=== PATIENT | male | born 1960 | race Caucasian/White ===

== ENCOUNTER 2017-11-03 13:59 | Emergency (ER) | payer OTHER ==
[~2017-11-03] VITALS: Ht 182.9 cm; Wt 89.4 kg
[~2017-11-03 13:59] MED LIST: AMO500 PO; ASPI-1471 PO; ASPI-879 PO; AZIT500T47 PO; BACDS PO; CEP500 PO; CIP500 PO; CIPR-212 PO; CLA500 PO; CPAP; DEXLAN60PT PO; DOC100 PO; DOXY-179 PO; FISH OIL1 CAP PO; FLU20 PO; GERD MED; HYDR-385 PO; HYDR-4309 PO; IBU600 PO; IBU800 PO; LISI-368 PO; LOR5 PO; LOR5/325 PO; LORTAB ELIXER; METO-734 PO; NAPR-1043 PO; NEBI10TA4 PO; NEBI2.5T5 PO; NEBI5TAB PO; NIT3 PO; NOR5/325 PO; OLA5 PO; OMEP-137 PO; OMEP-218 PO; OMEP10CA38 PO; ONDA4TAB PO; OXYC-688 PO; PANT40SU3 PO; PANT40TA65 PO; PER PO; PHENA200 PO; PRED-1 PO; SIMV5TAB56 PO; STONE FREE PO; SUCR1TAB51 PO; SUCR1TAB85 PO; SULF-198 PO; TAM4 PO; TOLT4CAP13 PO; no routine meds
[2017-11-03] MEDS ORDERED: NS(*) 0.9% 1000 ML BAG 1,000 ML IV ONE (14:16)
[2017-11-03] MEDS ORDERED: ONDANSETRON 4 MG/2 ML VIAL IVP ONE (14:20)
--- NOTE | 2017-11-03 14:28 | EKG ---
FACILITY: [facility] PATIENT NAME: JOSSIE SOTO : [id number] MR: [id number] V: [id number] EXAM DATE: ORDERING PHYSICIAN: ATTILA MONTALVO TECHNOLOGIST: MOISÉS Beltre Reason : CHEST TIGHTNESS Blood Pressure : / mmHG Vent. Rate : 080 BPM Atrial Rate : 080 BPM P-R Int : 168 ms QRS Dur : 080 ms QT Int : 370 ms P-R-T Axes : 057 009 050 degrees QTc Int : 426 ms Normal sinus rhythm Cannot rule out Anterior infarct , age undetermined Abnormal ECG When compared with ECG of 03-DEC-2015 00:03, No significant change was found Confirmed by GARCIA HUITRON ([id number]) on 11/03/2017 3:16:01 PM Referred By: SELVIN Confirmed By:GARCIA HUITRON
[2017-11-03 14:32] LABS: PLATELET COUNT, AUTOMATED 172 K/uL (150-450)
--- NOTE | 2017-11-03 14:32 | ER Report ---
History and Physical Time Seen By MD: 14:00 Hx. of Stated Complaint: chest tightness, sob, stomache pains, lower back pains HPI/ROS CHIEF COMPLAINT: Abdominal pain lower GI bleed HISTORY OF PRESENT ILLNESS: Patient is a 49 HO Farfan had dark stool is been seen and evaluated he's scheduled for colonoscopy says last couple days she's also had some mild abdominal discomfort primarily in the left upper and left lower quadrant also had some mild chest discomfort patient reportedly is she was tobacco has a family history of colon rectal cancer last bowel movement was dark but no obvious loulou or gross blood at this time is denying any orthopnea PND does have mild exertional dyspnea but this is been chronic in nature patient has no additional complaints at this time REVIEW OF SYSTEMS: Respiratory: No cough, no dyspnea. Cardiovascular: No chest pain, no palpitations. Gastrointestinal: Abdominal pain left upper left lower no nausea vomiting or diarrhea Musculoskeletal: No back pain. Remainder of the 14 system rev: Yes Allergies: Coded Allergies: No Known Drug Allergies (Unverified , 12/03/15) Home Meds Reported Medications Metformin Hcl (METFORMIN HCL) 500 Mg Tablet, 1 TAB PO BID, TAB 11/03/17 Simvastatin (SIMVASTATIN) 20 Mg Tablet, 20 MG PO HS, TAB 11/03/17 Lisinopril (LISINOPRIL) 10 Mg Tablet, 10 MG PO QDAY, TAB 11/03/17 Nebivolol Hcl (BYSTOLIC) 10 Mg Tab, 10 MG FT, TAB 11/03/17 Aspirin (ASPIR 81) 81 Mg Tablet.dr, 81 MG PO QDAY, TAB 08/10/14 Discontinued Reported Medications Nebivolol Hcl (BYSTOLIC) 5 Mg Tablet, 5 MG PO DAILY 08/10/14 Discontinued Scripts Hydrocodone Bit/Acetaminophen (NORCO 5-325 TABLET) 1 Each Tablet, 1 EACH PO Q4H Y for PAIN, #15 TAB Prov:BAHMAN LIU DO 12/03/15 Prednisone 10 Mg Tab (PREDNISONE 10 MG TAB) 10 Mg Tablet, 10 MG PO QDAY Y for ulcerative colitis, #27 3 tabs daily for 5 days 2 tabs daily for 5 days 1 tab daily for 5 days Prov:BAHMAN LIU DO 12/03/15 Pantoprazole Sodium (PANTOPRAZOLE SODIUM) 40 Mg Tablet., 40 MG PO QDAY, #60 TAB.SR 2 Refills Prov:LEROY MARQUEZ MD 10/31/15 Reviewed Nurses Notes: Yes Old Medical Records Reviewed: Yes Hx Smoking: No Smoking Status: Never Smoker Exposure to Second Hand Smoke?: No Hx Substance Use Disorder: Yes (METH LAST TIME WAS 2002) Hx Alcohol Use: Yes (occasional) Constitutional Vital Sign - Last 24 Hours 11/03/17 11/03/17 11/03/17 11/03/17 14:06 14:06 14:14 14:29 Temp 99.0 Pulse 82 83 77 Resp 14 B/P (MAP) 124/84 124/84 (97) Pulse Ox 98 93 91 O2 Delivery Room Air 11/03/17 11/03/17 11/03/17 14:30 14:44 15:00 Pulse 105 B/P (MAP) 119/78 (92) ???/??? (1665) Pulse Ox 100 Physical Exam General Appearance: The patient is alert, has no immediate need for airway protection and no current signs of toxicity. [ ] Eyes: Pupils equal and round no injection. Respiratory: Chest is non tender, lungs are clear to auscultation. Cardiac: regular rate and rhythm [ ] Gastrointestinal: Abdomen is soft and non tender, no masses, bowel sounds normal. Musculoskeletal: Neck: Neck is supple and non tender. Extremities have full range of motion and are non tender. Skin: No rashes or lesions. Rectal exam deferred DIFFERENTIAL DIAGNOSIS: After history and physical exam differential diagnosis was considered for colitis diverticulitis cardiac issue Medical Decision Making Data Points Result Diagram: 11/03/17 1408 11/03/17 1408 Laboratory Hematology Test 11/03/17 14:08 11/03/17 15:30 Red Blood Count 5.47 M/uL (4.00-5.60) Mean Corpuscular Volume 93.2 fL (80.0-96.0) Mean Corpuscular Hemoglobin 33.1 pg (26.0-33.0) Mean Corpuscular Hemoglobin Concent 35.5 g/dL (32.0-36.0) Red Cell Distribution Width 12.7 % (11.5-14.5) Mean Platelet Volume 8.6 fL (7.2-11.1) Neutrophils (%) (Auto) 61.5 % (39.4-72.5) Lymphocytes (%) (Auto) 21.6 % (17.6-49.6) Monocytes (%) (Auto) 13.3 % (4.1-12.4) Eosinophils (%) (Auto) 2.5 % (0.4-6.7) Basophils (%) (Auto) 1.1 % (0.3-1.4) Nucleated RBC Relative Count (auto) 0.2 /100WBC Neutrophils # (Auto) 5.4 K/uL (2.0-7.4) Lymphocytes # (Auto) 1.9 K/uL (1.3-3.6) Monocytes # (Auto) 1.2 K/uL (0.3-1.0) Eosinophils # (Auto) 0.2 K/uL (0.0-0.5) Basophils # (Auto) 0.1 K/uL (0.0-0.1) Nucleated RBC Absolute Count (auto) 0.02 K/uL Prothrombin Time 13.7 seconds (12.0-14.4) Prothromb Time International Ratio 1.05 Activated Partial Thromboplast Time 29 seconds (23-35) Sodium Level 140 mmol/L (137-145) Potassium Level 3.9 mmol/L (3.5-5.0) Chloride Level 100 mmol/L (98-107) Carbon Dioxide Level 26 mmol/L (22-30) Blood Urea Nitrogen 19 mg/dl (9-21) Creatinine 1.20 mg/dl (0.66-1.25) Glomerular Filtration Rate Calc > 60.0 Random Glucose 97 mg/dl (75-110) Calcium Level 9.4 mg/dl (8.4-10.2) Total Bilirubin 1.2 mg/dl (0.2-1.3) Aspartate Amino Transf (AST/SGOT) 51 U/L (0-35) Alanine Aminotransferase (ALT/SGPT) 88 U/L (0-56) Alkaline Phosphatase 89 U/L (0-126) Troponin I < 0.012 ng/ml Total Protein 7.9 gm/dl (6.3-8.2) Albumin 4.5 g/dl (3.5-5.0) Lipase 84 U/L (23-300) Serum Alcohol < 10 mg/dl Chemistry Test 11/03/17 14:08 11/03/17 15:30 White Blood Count 8.8 k/uL (4.5-11.0) Red Blood Count 5.47 M/uL (4.00-5.60) Hemoglobin 18.1 g/dL (14.0-18.0) Hematocrit 51.0 % (42.0-52.0) Mean Corpuscular Volume 93.2 fL (80.0-96.0) Mean Corpuscular Hemoglobin 33.1 pg (26.0-33.0) Mean Corpuscular Hemoglobin Concent 35.5 g/dL (32.0-36.0) Red Cell Distribution Width 12.7 % (11.5-14.5) Platelet Count 172 K/uL (150-450) Mean Platelet Volume 8.6 fL (7.2-11.1) Neutrophils (%) (Auto) 61.5 % (39.4-72.5) Lymphocytes (%) (Auto) 21.6 % (17.6-49.6) Monocytes (%) (Auto) 13.3 % (4.1-12.4) Eosinophils (%) (Auto) 2.5 % (0.4-6.7) Basophils (%) (Auto) 1.1 % (0.3-1.4) Nucleated RBC Relative Count (auto) 0.2 /100WBC Neutrophils # (Auto) 5.4 K/uL (2.0-7.4) Lymphocytes # (Auto) 1.9 K/uL (1.3-3.6) Monocytes # (Auto) 1.2 K/uL (0.3-1.0) Eosinophils # (Auto) 0.2 K/uL (0.0-0.5) Basophils # (Auto) 0.1 K/uL (0.0-0.1) Nucleated RBC Absolute Count (auto) 0.02 K/uL Prothrombin Time 13.7 seconds (12.0-14.4) Prothromb Time International Ratio 1.05 Activated Partial Thromboplast Time 29 seconds (23-35) Glomerular Filtration Rate Calc > 60.0 Calcium Level 9.4 mg/dl (8.4-10.2) Total Bilirubin 1.2 mg/dl (0.2-1.3) Aspartate Amino Transf (AST/SGOT) 51 U/L (0-35) Alanine Aminotransferase (ALT/SGPT) 88 U/L (0-56) Alkaline Phosphatase 89 U/L (0-126) Troponin I < 0.012 ng/ml Total Protein 7.9 gm/dl (6.3-8.2) Albumin 4.5 g/dl (3.5-5.0) Lipase 84 U/L (23-300) Serum Alcohol < 10 mg/dl Coagulation Test 11/03/17 14:08 Prothrombin Time 13.7 seconds Prothromb Time International Ratio 1.05 Activated Partial Thromboplast Time 29 seconds Toxicology Test 11/03/17 14:08 Serum Alcohol < 10 mg/dl Urinalysis Test 11/03/17 15:30 ED Course/Re-evaluation ED Course ED clinical course 49 atrial male comes in with nonspecific nonlocalized abdominal discomfort which is chronic and for blood in his stool he deferred on his rectal exam his hemoglobin is 18 so clearly there is no emergent indication for further imaging at this time CT scan does show no acute findings of the abdomen and pelvis he did have a nodule in the chest advised him to follow up with the outpatient imaging on that patient be discharged he hasn't arty schedule colonoscopy in the next couple of weeks refer him to back to his GI specialist for further workup Decision to Disposition Date: Nov 03, 2017 Decision to Disposition Time: 15:44 Depart Departure Latest Vital Signs Vital Signs Date Time Temp Pulse Resp B/P (MAP) Pulse Ox O2 Delivery O2 Flow Rate FiO2 11/03/17 15:00 ???/??? (1665) 11/03/17 14:44 105 100 11/03/17 14:06 99.0 14 Room Air Impression: Primary Impression: Rectal bleeding Condition: Improved Disposition: HOME OR SELF-CARE Referrals: SUYAPA VALENZUELA (PCP) 10 Days Patient Instructions: Rectal Bleeding (DC) ATTILA MONTALVO MD Nov 03, 2017 14:32
[2017-11-03 14:35] LABS: INR 1.05
[2017-11-03] MEDS ORDERED: IOPAMIDOL 76% 75 ML INFUS BTL 0 ML ONE (14:42)
[2017-11-03] MEDS ORDERED: NEBI10TA4 FT (14:47)
[2017-11-03] MEDS ORDERED: LISI-362 PO (14:48)
[2017-11-03] MEDS ORDERED: METF-410 PO (14:50)
[2017-11-03] MEDS ORDERED: SIMV-49 PO (14:50)
[2017-11-03] MEDS ORDERED: IOPAMIDOL 76% 50 ML INFUS BTL 0 ML ONE (15:09)
[2017-11-03] MEDS ORDERED: IOPAMIDOL 76% 75 ML INFUS BTL 75 ML ONE (15:11)
--- NOTE | 2017-11-03 15:29 | RADIOLOGY IMAGING REPORT ---
FACILITY: [facility] PATIENT NAME: Edward Umana : 1960 MR: [id number] V: [id number] EXAM DATE: ORDERING PHYSICIAN: ATTILA MONTALVO TECHNOLOGIST: Location[place] [facility] [place] Patient: Edward Umana : 1960 Visit/Account:[id number] Date of Sevice: 11/03/2017 Examination: CHEST PA AND LAT Comparison: None. History: Chest pain. Findings: No consolidation or evidence of peribronchial inflammation. Incompletely visualized proxima lly 1 cm nodule in the anterior chest is only seen on the lateral projection. No pneumothorax, edema, or effusion. Osseous structures are intact. IMPRESSION: 1. No evidence of acute cardiopulmonary disease. 2. Incompletely characterized 1 cm nodule. Further evaluation by CT chest is recommended. Report Dictated By: Fabian Wild MD at 11/03/2017 3:23 PM Report E-Signed By: Fabian Wild MD at 11/03/2017 3:25 PM WSN:[id number]
--- NOTE | 2017-11-03 15:38 | RADIOLOGY IMAGING REPORT ---
FACILITY: [facility] - [place] PATIENT NAME: Edward Umana : 1960 MR: [id number] V: [id number] EXAM DATE: ORDERING PHYSICIAN: ATTILA MONTALVO TECHNOLOGIST: Location: [facility] Patient: Edward Umana : 1960 Visit/Account:[id number] Date of Sevice: 11/03/2017 EXAMINATION: CT abdomen and pelvis with contrast COMPARISON: 08/10/2014 HISTORY: Abdominal pain. PROCEDURE: Multiplanar contrast enhanced CT of the abdomen and pelvis with 75 mL intravenous Isovue 3 70. One of the following dose optimization techniques was utilized in the performance of this exam: A utomated exposure control; adjustment of the mA and/or kV according to the patient's size; or use of an iterative reconstruction technique. Specific details can be referenced in the facility's radiolo gy CT exam operational policy. FINDINGS: Visualized thorax: No evidence of acute disease in the visualized lower thorax. The region of the que stionable nodule on earlier chest radiograph is not included on this study. Liver: Hepatic steatosis. Gallbladder and biliary system: Cholecystectomy. No bile duct dilation. Spleen: Spleen size is normal. Pancreas: Negative. Adrenal glands: Negative. Kidneys and bladder: The left kidney contains multiple small cortical and parapelvic cysts as well as a single 3 mm nonobstructing stone in the lower pole. No left or right kidney renal mass or hydronep hrosis. Urinary bladder is unremarkable. Vessels: Moderate aortoiliac atherosclerosis. No abdominal aortic aneurysm. Portal venous system and IVC are within normal limits. Bowel and mesentery: Stomach is within normal limits. Small bowel and appendix are unremarkable. Smal l amount of stool in the colon. No bowel or mesenteric inflammation. Pelvic organs: Negative. Lymph nodes: No adenopathy. Free air/free fluid: None. Abdominal wall and osseous structures: Abdominal wall is intact. Mild degenerative change throughout the osseous structures. No acute osseous abnormality. IMPRESSION: 1. No findings of acute disease in the abdomen or pelvis. 2. Nonacute findings as detailed above. Report Dictated By: Fabian Wild MD at 11/03/2017 3:27 PM Report E-Signed By: Fabian Wild MD at 11/03/2017 3:33 PM WSN:[id number]
[2017-11-03 15:50] VITALS: BP 136/88
== END 2017-11-03 15:52 | disposition home or self-care (01) ==
LOC: ER 14:28
DX: K62.5 Hemorrhage of anus and rectum (principal)
CPT/HCPCS: 71046; 74177; 80320; 81001; 83690; 84484; 85025; 85610; 85730; 93005; 96361; 96374; 99284; J2405; J7030; Q9967; 82040; 82247; 82310; 82374; 82435; 82565; 82947; 84075; 84132; 84155; 84295; 84450; 84460; 84520

== ENCOUNTER → 2017-11-21 | Outpatient (REF) | payer OTHER ==
[~2017-11-21] MED LIST changes: +LISI-362 PO; +METF-410 PO; +NEBI10TA4 FT; +SIMV-49 PO
== END ==
LOC: ZZSTITCHES 09:56
PROVIDERS: ATTEND Physician Assistant
DX: Z00.00 Encounter for general adult medical examination without abnormal findings (principal)
CPT/HCPCS: 84153

== ENCOUNTER → 2018-01-21 | Outpatient (CLI) | payer OTHER ==
[~2018-01-21] MED LIST changes: -METF-410 PO; +METF-411 PO
== END ==
LOC: RESP 19:48
PROVIDERS: ATTEND Internal Medicine
DX: G47.33 Obstructive sleep apnea (adult) (pediatric) (principal); E66.3 Overweight

== ENCOUNTER 2018-04-10 23:52 | Emergency (ER) | payer OTHER ==
[2018-04-11] MEDS ORDERED: METF-411 PO (00:02)
[2018-04-11] MEDS ORDERED: LOSA100T67 (00:02)
--- NOTE | 2018-04-11 00:06 | ER Report ---
History and Physical Time Seen By MD: 00:05 Hx. of Stated Complaint: PT REPORTS LLQ PAIN ON AND OFF FOR 2 WEEKS, DIARRHEA HPI/ROS CHIEF COMPLAINT: Left abdominal pain HISTORY OF PRESENT ILLNESS: This is a 57 year old male. He has been having some pain in the left abdomen for a few weeks now. Comes and goes. Sometimes very severe. He is having the pain now. Left anterior mid abdomen. No radiation. Nothing makes it worse or better. He has some nausea with this. No changes in bowels, no diarrhea, no blood in stool. No problems with urination including dark urine or blood or dysuria. He has had his gallbladder removed. He has had some gastritis in the past. His regular provider told him to stop drinking because of liver problems. No fevers or chills REVIEW OF SYSTEMS: Constitutional: As above. Eyes: No discharge. No vision changes. ENT: No sore throat. No congestion. Cardiovascular: No chest pain. No palpitations. Respiratory: No cough. No shortness of breath. Gastrointestinal: As above. Genitourinary: As above. Musculoskeletal: No back pain. No extremity pain. Skin: No rashes. Neurological: No numbness. No weakness. Allergies: Coded Allergies: No Known Drug Allergies (Unverified , 04/10/18) Home Meds Reported Medications Losartan Potassium (LOSARTAN POTASSIUM) 100 Mg Tablet, QDAY 04/11/18 Metformin Hcl (METFORMIN HCL) 500 Mg Tablet, 2 TAB PO BID, TAB 04/11/18 Simvastatin (SIMVASTATIN) 20 Mg Tablet, 20 MG PO HS, TAB 11/03/17 Nebivolol Hcl (BYSTOLIC) 10 Mg Tab, 10 MG FT, TAB 11/03/17 Aspirin (ASPIR 81) 81 Mg Tablet.dr, 81 MG PO QDAY, TAB 08/10/14 Discontinued Reported Medications Metformin Hcl (METFORMIN HCL) 500 Mg Tablet, 1 TAB PO BID, TAB 11/03/17 Lisinopril (LISINOPRIL) 10 Mg Tablet, 10 MG PO QDAY, TAB 11/03/17 Reviewed Nurses Notes: Yes Hx Smoking: No Smoking Status: Never Smoker Exposure to Second Hand Smoke?: No Hx Substance Use Disorder: Yes (METH LAST TIME WAS 2002) Hx Alcohol Use: Yes (occasional) Constitutional Vital Sign - Last 24 Hours 04/10/18 04/10/18 04/11/18 04/11/18 23:52 23:55 00:00 00:07 Temp 97.7 Pulse ??? 70 Resp 16 B/P (MAP) 120/96 120/96 (104) Pulse Ox 93 93 O2 Delivery Room Air 04/11/18 04/11/18 04/11/18 04/11/18 00:22 00:27 00:37 00:42 Pulse 69 68 63 B/P (MAP) 99/65 (76) Pulse Ox 92 92 04/11/18 04/11/18 04/11/18 04/11/18 00:57 01:00 01:12 01:17 Pulse 67 68 68 B/P (MAP) 100/65 (77) Pulse Ox 93 91 92 04/11/18 04/11/18 04/11/18 04/11/18 01:30 01:32 01:47 02:00 Pulse 65 62 B/P (MAP) 116/70 (85) 118/77 (91) 04/11/18 04/11/18 04/11/18 02:02 02:17 02:20 Pulse 59 63 61 Pulse Ox 91 93 Physical Exam General Appearance: The patient is alert. No acute distress. Eyes: Pupils are equal, round. No pallor, injection or icterus. ENT: Mucous membranes are moist. Normal oral mucosa. Posterior oropharynx is normal. Neck: Supple and non tender. No lymphadenopathy. Respiratory: Lungs are clear to auscultation. Cardiovascular: Regular rate and rhythm. No murmurs, gallops or rubs. Normal capillary refill. Gastrointestinal: Abdomen is soft, having some tenderness mid left abdomen. Nondistended. No rebound or guarding. No masses or organomegaly. No pulsatile mass. Normal active bowel sounds. No costovertebral angle tenderness with percussion. Neurological: Alert and oriented x3. No focal neurologic deficits Skin: Warm and dry. Musculoskeletal: Extremities are nontender. No tenderness in palpation of the cervical, thoracic and lumbar spine. DIFFERENTIAL DIAGNOSIS: After history and physical exam, differential diagnosis was considered for left sided abdomen/flank pain including but not limited to musculoskeletal causes, kidney stone, pyelonephritis, and intra-abdominal causes such as diverticulitis or aneurysm. Medical Decision Making Data Points Result Diagram: 04/11/18 0011 04/11/18 0011 Laboratory Hematology Test 04/11/18 00:00 04/11/18 00:11 04/11/18 01:40 Urine Color Yellow Urine Clarity Slightly-cloudy Urine pH 5.0 pH (4.8-9.5) Urine Specific [place] 1.013 Urine Protein Negative mg/dL (NEGATIVE) Urine Glucose (UA) 50 mg/dL (NEGATIVE) Urine Ketones Negative mg/dL (NEGATIVE) Urine Blood Negative (NEGATIVE) Urine Nitrite Negative (NEGATIVE) Urine Bilirubin Negative (NEGATIVE) Urine Urobilinogen Negative mg/dL (0.2-1.9) Urine Leukocyte Esterase Negative (NEGATIVE) Urine RBC 3 /HPF (0-2/HPF) Urine WBC 3 /HPF (0-5/HPF) Urine Squamous Epithelial Cells None /LPF (</=FEW) Urine Bacteria Negative /HPF (NONE-FEW) Urine Hyaline Casts Few /LPF (NONE-FEW) Urine Mucus Few /HPF (NONE-FEW) Red Blood Count 4.96 M/uL (4.00-5.60) Mean Corpuscular Volume 93.8 fL (80.0-96.0) Mean Corpuscular Hemoglobin 33.0 pg (26.0-33.0) Mean Corpuscular Hemoglobin Concent 35.2 g/dL (32.0-36.0) Red Cell Distribution Width 13.2 % (11.5-14.5) Mean Platelet Volume 8.8 fL (7.2-11.1) Neutrophils (%) (Auto) 70.9 % (39.4-72.5) Lymphocytes (%) (Auto) 18.5 % (17.6-49.6) Monocytes (%) (Auto) 7.5 % (4.1-12.4) Eosinophils (%) (Auto) 1.9 % (0.4-6.7) Basophils (%) (Auto) 1.2 % (0.3-1.4) Nucleated RBC Relative Count (auto) 0.1 /100WBC Neutrophils # (Auto) 5.9 K/uL (2.0-7.4) Lymphocytes # (Auto) 1.5 K/uL (1.3-3.6) Monocytes # (Auto) 0.6 K/uL (0.3-1.0) Eosinophils # (Auto) 0.2 K/uL (0.0-0.5) Basophils # (Auto) 0.1 K/uL (0.0-0.1) Nucleated RBC Absolute Count (auto) 0.01 K/uL Sodium Level 137 mmol/L (137-145) Potassium Level 3.3 mmol/L (3.5-5.0) Chloride Level 100 mmol/L (98-107) Carbon Dioxide Level 24 mmol/L (22-30) Blood Urea Nitrogen 32 mg/dl (9-21) Creatinine 1.80 mg/dl (0.66-1.25) Glomerular Filtration Rate Calc 38.9 Random Glucose 119 mg/dl (75-110) Calcium Level 9.3 mg/dl (8.4-10.2) Total Bilirubin 1.2 mg/dl (0.2-1.3) Aspartate Amino Transf (AST/SGOT) 46 U/L (0-35) Alanine Aminotransferase (ALT/SGPT) 62 U/L (0-56) Alkaline Phosphatase 68 U/L (0-126) C-Reactive Protein 1.0 mg/dl (<1.0) Total Protein 7.3 g/dl (6.3-8.2) Albumin 4.5 g/dl (3.5-5.0) Amylase Level 77 U/L (0-110) Lipase 72 U/L (23-300) Lactate 1.2 mmol/L (0.7-2.1) Chemistry Test 04/11/18 00:00 04/11/18 00:11 04/11/18 01:40 Urine Color Yellow Urine Clarity Slightly-cloudy Urine pH 5.0 pH (4.8-9.5) Urine Specific [place] 1.013 Urine Protein Negative mg/dL (NEGATIVE) Urine Glucose (UA) 50 mg/dL (NEGATIVE) Urine Ketones Negative mg/dL (NEGATIVE) Urine Blood Negative (NEGATIVE) Urine Nitrite Negative (NEGATIVE) Urine Bilirubin Negative (NEGATIVE) Urine Urobilinogen Negative mg/dL (0.2-1.9) Urine Leukocyte Esterase Negative (NEGATIVE) Urine RBC 3 /HPF (0-2/HPF) Urine WBC 3 /HPF (0-5/HPF) Urine Squamous Epithelial Cells None /LPF (</=FEW) Urine Bacteria Negative /HPF (NONE-FEW) Urine Hyaline Casts Few /LPF (NONE-FEW) Urine Mucus Few /HPF (NONE-FEW) White Blood Count 8.3 k/uL (4.5-11.0) Red Blood Count 4.96 M/uL (4.00-5.60) Hemoglobin 16.4 g/dL (14.0-18.0) Hematocrit 46.5 % (42.0-52.0) Mean Corpuscular Volume 93.8 fL (80.0-96.0) Mean Corpuscular Hemoglobin 33.0 pg (26.0-33.0) Mean Corpuscular Hemoglobin Concent 35.2 g/dL (32.0-36.0) Red Cell Distribution Width 13.2 % (11.5-14.5) Platelet Count 162 K/uL (150-450) Mean Platelet Volume 8.8 fL (7.2-11.1) Neutrophils (%) (Auto) 70.9 % (39.4-72.5) Lymphocytes (%) (Auto) 18.5 % (17.6-49.6) Monocytes (%) (Auto) 7.5 % (4.1-12.4) Eosinophils (%) (Auto) 1.9 % (0.4-6.7) Basophils (%) (Auto) 1.2 % (0.3-1.4) Nucleated RBC Relative Count (auto) 0.1 /100WBC Neutrophils # (Auto) 5.9 K/uL (2.0-7.4) Lymphocytes # (Auto) 1.5 K/uL (1.3-3.6) Monocytes # (Auto) 0.6 K/uL (0.3-1.0) Eosinophils # (Auto) 0.2 K/uL (0.0-0.5) Basophils # (Auto) 0.1 K/uL (0.0-0.1) Nucleated RBC Absolute Count (auto) 0.01 K/uL Glomerular Filtration Rate Calc 38.9 Calcium Level 9.3 mg/dl (8.4-10.2) Total Bilirubin 1.2 mg/dl (0.2-1.3) Aspartate Amino Transf (AST/SGOT) 46 U/L (0-35) Alanine Aminotransferase (ALT/SGPT) 62 U/L (0-56) Alkaline Phosphatase 68 U/L (0-126) C-Reactive Protein 1.0 mg/dl (<1.0) Total Protein 7.3 g/dl (6.3-8.2) Albumin 4.5 g/dl (3.5-5.0) Amylase Level 77 U/L (0-110) Lipase 72 U/L (23-300) Lactate 1.2 mmol/L (0.7-2.1) Urinalysis Test 04/11/18 00:00 Urine Color Yellow Urine Clarity Slightly-cloudy Urine pH 5.0 pH (4.8-9.5) Urine Specific [place] 1.013 Urine Protein Negative mg/dL (NEGATIVE) Urine Glucose (UA) 50 mg/dL (NEGATIVE) Urine Ketones Negative mg/dL (NEGATIVE) Urine Blood Negative (NEGATIVE) Urine Nitrite Negative (NEGATIVE) Urine Bilirubin Negative (NEGATIVE) Urine Urobilinogen Negative mg/dL (0.2-1.9) Urine Leukocyte Esterase Negative (NEGATIVE) Urine RBC 3 /HPF (0-2/HPF) Urine WBC 3 /HPF (0-5/HPF) Urine Squamous Epithelial Cells None /LPF (</=FEW) Urine Bacteria Negative /HPF (NONE-FEW) Urine Hyaline Casts Few /LPF (NONE-FEW) Urine Mucus Few /HPF (NONE-FEW) EKG/Imaging Imaging ABDOMEN/PELVIS W/O CONTRAST EXAMINATION: CT abdomen without IV contrast CT pelvis without IV contrast HISTORY: Abdominal pain TECHNIQUE: CT scan of the abdomen and pelvis performed from the lung base through pubic symphysis without IV contrast. Reconstructed sagittal and coronal scans obtained as well. One of the following dose optimization techniques was utilized in the performance of this exam: Automated exposure control; adjustment of the mA and/ or kV according to the patient's size; or use of an iterative reconstruction technique. Specific details can be referenced in the facility's radiology CT exam operational policy. FINDINGS: Please note that this exam was tailored for detection of urinary stones. Portions of the upper abdomen may not be included. Also, with intravenous contrast, sensitivity to detection of parenchymal disease is limited. Liver/Biliary: Status post cholecystectomy Pancreas: Negative Spleen: Negative Adrenal glands: Negative Kidneys/Retroperitoneum: No renal stones or renal obstructive uropathy change. 4 mm nonobstructing stone in lower pole in the left kidney. Second probable dystrophic calcification in the renal cortex from previous renal insult in the mid lateral aspect measuring 4 mm. It is associated with a focal area of cortical scarring. Prominent left parapelvic cysts. Right kidney with no stones. No renal obstructive uropathy change Pelvic structures: Prostate is mildly large. Bladder is unremarkable. No stones within the bladder to suggest recently passed stones. Bowel/peritoneum/mesenteries: Scattered diverticuli without evidence of diverticulitis. Appendix normal with no appendicitis. Vessels: Atherosclerotic disease within the nonaneurysmal aorta. Musculoskeletal/body wall: Negative Lymph node assessment: Negative Lower chest: Negative IMPRESSION: 1. No acute intra-abdominal or pelvic pathology. 2. Diverticulosis without evidence of diverticulitis. 3. Nonobstructing stone in lower pole of the left kidney Report Dictated By: Salty Serrano MD at 04/11/2018 1:43 AM ED Course/Re-evaluation Clinical Indication for ER IV: Hydration, IV Access ED Course Mild changes on labs noted with mild renal insufficiency. Because of this, CT scan was done without contrast. Mild decrease in potassium. CT scan was negative. Uncertain why the patient is having pain, and referred him back to his primary care provider and also referred him to see Dr. Cervantes for further evaluation. Decision to Disposition Date: Apr 11, 2018 Decision to Disposition Time: 02:20 Depart Departure Latest Vital Signs Vital Signs Date Time Temp Pulse Resp B/P (MAP) Pulse Ox O2 Delivery O2 Flow Rate FiO2 04/11/18 02:20 61 04/11/18 02:17 93 04/11/18 02:00 118/77 (91) 04/10/18 23:55 97.7 16 Room Air Impression: Primary Impression: Abdominal pain Condition: Improved Disposition: HOME OR SELF-CARE Referrals: SUYAPA VALENZUELA (PCP) GARCIA MARTIN MD Patient Instructions: Abdominal Pain (ED) Additional Instructions: Follow up with your regular provider. Call and arrange an appointment with Dr. Martin for further evaluation. No changes to medications at this time. Ibuprofen as needed for pain. Problem Qualifiers Primary Impression: Abdominal pain Abdominal location: left lower quadrant Qualified Codes: R10.32 - Left lower quadrant pain ANN MARIE GONSALVES MD Apr 11, 2018 00:06
[2018-04-11] MEDS ORDERED: NS(*) 0.9% 1000 ML BAG 1,000 ML IV ONE (00:33)
[2018-04-11] MEDS ORDERED: IOPAMIDOL 76% 100 ML INFUS BTL 0 ML ONE (00:47)
[2018-04-11 00:48] LABS: PLATELET COUNT, AUTOMATED 162 K/uL (150-450)
[2018-04-11 02:00] VITALS: BP 118/77
--- NOTE | 2018-04-11 02:12 | RADIOLOGY IMAGING REPORT ---
FACILITY: [facility] PATIENT NAME: Edward Umana : 1960 MR: [id number] V: [id number] EXAM DATE: ORDERING PHYSICIAN: ANN MARIE GONSALVES TECHNOLOGIST: Location: [facility] [place] Patient: Edward Umana : 1960 Visit/Account:[id number] Date of Sevice: 04/11/2018 ABDOMEN/PELVIS W/O CONTRAST EXAMINATION: CT abdomen without IV contrast CT pelvis without IV contrast HISTORY: Abdominal pain TECHNIQUE: CT scan of the abdomen and pelvis performed from the lung base through pubic symphysis wit hout IV contrast. Reconstructed sagittal and coronal scans obtained as well. One of the following dose optimization techniques was utilized in the performance of this exam: Autom ated exposure control; adjustment of the mA and/or kV according to the patient's size; or use of an i terative reconstruction technique. Specific details can be referenced in the facility's radiology C T exam operational policy. FINDINGS: Please note that this exam was tailored for detection of urinary stones. Portions of the upper abdome n may not be included. Also, with intravenous contrast, sensitivity to detection of parenchymal disea se is limited. Liver/Biliary: Status post cholecystectomy Pancreas: Negative Spleen: Negative Adrenal glands: Negative Kidneys/Retroperitoneum: No renal stones or renal obstructive uropathy change. [address] one in lower pole in the left kidney. Second probable dystrophic calcification in the renal cortex fr om previous renal insult in the mid lateral aspect measuring 4 mm. It is associated with a focal area of cortical scarring. Prominent left parapelvic cysts. Right kidney with no stones. No renal obstructive uropathy change Pelvic structures: Prostate is mildly large. Bladder is unremarkable. No stones within the bladder to suggest recently passed stones. Bowel/peritoneum/mesenteries: Scattered diverticuli without evidence of diverticulitis. Appendix norm al with no appendicitis. Vessels: Atherosclerotic disease within the nonaneurysmal aorta. Musculoskeletal/body wall: Negative Lymph node assessment: Negative Lower chest: Negative IMPRESSION: 1. No acute intra-abdominal or pelvic pathology. 2. Diverticulosis without evidence of diverticulitis. 3. Nonobstructing stone in lower pole of the left kidney Report Dictated By: Salty Serrano MD at 04/11/2018 1:43 AM Report E-Signed By: Salty Serrano MD at 04/11/2018 2:09 AM WSN:[id number]
== END 2018-04-11 02:25 | disposition home or self-care (01) ==
LOC: ER 23:55
DX: R10.32 Left lower quadrant pain (principal)
CPT/HCPCS: 36415; 74176; 81001; 82150; 83605; 83690; 85025; 86140; 96360; 99284; J7030; 82040; 82247; 82310; 82374; 82435; 82565; 82947; 84075; 84132; 84155; 84295; 84450; 84460; 84520; Q9967

== ENCOUNTER → 2018-04-11 | Outpatient (REF) | payer OTHER ==
[~2018-04-11] MED LIST changes: +LOSA100T67
== END ==
LOC: ZZSTITCHES 10:24
PROVIDERS: ATTEND Physician Assistant
DX: R10.9 Unspecified abdominal pain (principal); R61 Generalized hyperhidrosis; R07.9 Chest pain, unspecified; R06.02 Shortness of breath
CPT/HCPCS: 83735; 84484

== ENCOUNTER 2018-09-16 21:09 | Emergency (ER) | payer SELFPAY ==
[~2018-09-16 21:09] MED LIST changes: -HYDR-4309 PO; +HYDR-653 PO; -LOSA100T67; +LOSA100T75 PO; -METF-411 PO; +METF-450 PO
[2018-09-16 21:20] VITALS: BP 158/109
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
[2018-09-16 22:02] LABS: PLATELET COUNT, AUTOMATED 180 K/uL (150-450)
== END 2018-09-16 23:50 ==
LOC: ER 21:42
DX: R45.851 Suicidal ideations (principal); F32.1 Major depressive disorder, single episode, moderate; Y90.3 Blood alcohol level of 60-79 mg/100 ml
CPT/HCPCS: 36415; 80305; 80320; 80329; 81001; 82040; 82247; 82310; 82374; 82435; 82565; 82947; 83735; 84075; 84132; 84155; 84295; 84443; 84450; 84460; 84520; 85025; 87088; 99284

== ENCOUNTER 2018-09-16 23:11 | Inpatient (IN) | payer OTHER ==
[~2018-09-16] VITALS: Ht 182.9 cm; Wt 105.2 kg
[2018-09-17] MEDS ORDERED: LORazepam 1 MG TAB PO PRN (00:20)
[2018-09-17] MEDS ORDERED: NICOTINE POLACRILEX 4 MG LOZG PO PRN (00:20)
[2018-09-17] MEDS ORDERED: MAG HYD/AL HYD/SIMETH 30ML UDC PO PRN (01:15)
[2018-09-17 01:55] VITALS: BP 138/88
[2018-09-17] MEDS: MULTIVITAMINS PO SCH (09:00)
[2018-09-17 11:30] VITALS: BP 132/80
[2018-09-17] MEDS: METOPROLOL SUCC XL 50 MG TABCR 50 MG TAB.ER.24H PO SCH (11:35)
[2018-09-17] MEDS: LOSARTAN POTASSIUM 50 MG TAB PO SCH (11:35)
[2018-09-17] MEDS: buPROPion XL 150 MG TABCR PO SCH (11:35)
[2018-09-17] MEDS: ASPIRIN 81 MG ENTERIC COATED PO SCH (11:35)
[2018-09-17] MEDS: metFORMIN HCL 500 MG TAB PO SCH ×2 (11:35→17:42)
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
--- NOTE | 2018-09-17 16:14 | BHS - Psychiatric Evaluation ---
ER - Title 25 MHE Evaluation Title 25 Evaluation Patient Detained By: Law Enforcement (Chloe Eucedamariposa) Referral Source: Law Enforcement Date Patient Detained: Sep 16, 2018 Time Patient Detained: 23:00 Date Chcf Expires: Sep 29, 2018 Time Chcf Expires: 00:00 Legal Status: Police Hold: Yes Legal Status: Residence: [facility] Resident, State Resident Assessment Data Provided By: Patient, Law Enforcement, Other Source ([facility]) HPI/ROS: Per ER Physician Dr. Aldo Lou, "58-year-old male patient presents to the emergency room with the [employer] with complaints of suicidal ideation. Patient told some coworkers that he was having some suicidal thoughts, he was going to take a gun and shoot himself. Patient does in fact own a gun. The coworker did contact the police who contacted the patient. They spoke on the phone for quite some time and he admitted to the police that he was going to shoot himself. At that time they did go to his residence where they found him. They did take him into custody and brought him here to the emergency room under an emergency usp. Patient does admit to suicidal ideation here in the emergency room." Admit due to SI or Attempt: Yes Suicide Plan: Has Plan with Access Alcohol or Drugs Involved: Yes (Reports some drinking and long-term sobriety from drugs ) Is Patient Info Reliable: No (Patient very much wants to leave [facility], and as a result may not accurately represent his emotional pain.) Is Collateral Info Reliable: Yes (3-81) Current Home Psych Meds: Wellbutrin Mental Status Exam General Appearance: Well Groomed, Good Eye Contact, Cooperative, Good Interaction Speech: Clear, Spontaneous Mood: Dysthmic/Depressed (Reports disappiontment with his significant rel ationship.) Affect: Sad, Agitated (Discusses some frustrations and become animated as he does.) Thought Process: Goal Directed Thought Content: Suicidal Ideation Cognition: Alert & Oriented-Person, Alert & Oriented-Place, Alert & Oriented- Time Memory: Immediate, Recent, Remote Insight Judgment: Poor Hallucinations: Denies Delusions: Denies Current Risk & History Current Dangerous Risk Assessm: Current Suicide Ideation (Denies current suicidal ideation, but says he was suicidal a very short while ago (last ebvening). ), Agitation this Encounter (Feeling very upset at times especially this time related to a marital argument.) Past Dangerous Risk Assessm: Suicide Ideation-last 6mo (Acknowledges some ideation.) Previous Suicide Attempt: Past - Low Lethality (S hospitalization several years ago. Acknowledges ideation at certain periods of his life.) Previous Psychiatric Illness: Yes (Depression, Anxiety, some substance abuse.) Previous Psychiatric Treatment: Yes (Patient was seen at [facility] years ago, most recently saw Cora Nieto.) Risk Assessment & Disposition Evaluated Risk Assessment: Per Dr. Aldo Lou, "Patient is high risk. He has access and he has an active plan." Impression: Primary Impression: Suicidal ideation Additional Impression: Depression Meets Mental Illness Req.: Yes Meets Dangerousness Req.: Yes Emergency Chcf to be: Upheld Decision Comment: Per Dr. Aldo Lou, "Patient has very high risk plan. His usp will be upheld." Date of Decision: Sep 17, 2018 Time of Decision: 16:45 Patient is Medically Stable at: Yes Disposition: [facility] Problem Qualifiers HOA DELGADILLO LPC Sep 17, 2018 16:13
[2018-09-18 01:23] VITALS: BP 140/88
[2018-09-18] MEDS ORDERED: BUPR-474 PO (04:05)
[2018-09-18] MEDS ORDERED: METO50TA19 PO (04:08)
[2018-09-18] MEDS: buPROPion XL 150 MG TABCR PO SCH (07:56)
[2018-09-18] MEDS: ASPIRIN 81 MG ENTERIC COATED PO SCH (07:56)
[2018-09-18] MEDS: LOSARTAN POTASSIUM 50 MG TAB PO SCH (07:56)
[2018-09-18] MEDS: METOPROLOL SUCC XL 50 MG TABCR 50 MG TAB.ER.24H PO SCH (07:56)
[2018-09-18] MEDS: metFORMIN HCL 500 MG TAB PO SCH (07:56)
[2018-09-18] MEDS: MULTIVITAMINS PO SCH (07:56)
[2018-09-18] MEDS: ACETAMINOPHEN 325 MG TAB PO PRN (07:57)
--- NOTE | 2018-09-18 09:40 | BHS Progress Note ---
BHS - Subjective Progress Notes Subjective "I'm good and bad. It' would be nice if people believed what I say." Suicidal Ideation: Resolving Homicidal Ideation: None S - Objective Physical Exam Vital Signs Vital Signs 09/17/18 09/18/18 11:30 01:23 Temp 97.8 Pulse 112 Resp 16 B/P (MAP) 140/88 (105) Pulse Ox 92 O2 Delivery Room Air Muscle Strength and Tone: WNL Gait and Station: Steady, Unsteady BHS Medications Reviewed: Side Effects, Benefits of Medication, Risks Allergies Reviewed: Yes Mental Status Exam General Appearance: Well Groomed, Good Eye Contact, Cooperative, Good Interaction Speech: Clear, Spontaneous Mood: Dysthmic/Depressed (Reports disappiontment with his significant relationship.) Affect: Sad, Agitated (Discusses some frustrations and become animated as he d oes.) Thought Process: Goal Directed Thought Content: Suicidal Ideation Cognition: Alert & Oriented-Person, Alert & Oriented-Place, Alert & Oriented- Time Memory: Immediate, Recent, Remote Insight Judgment: Poor [facility] Assessment and Plan Nbjt-vc-[id number] Encounter Date: Sep 18, 2018 Pynb-ov-Iaek Encounter Time: 09:15 [facility] Plan: Admit to Unit, Necessary Precautions, Individual/Group Therapy, Admin/Titrate Meds, Educate Patient Tobacco Medications: Bupropion (Wellbutrin) Multpiple Antipsychotics Used: No Problems: (1) Major depression Problem Qualifiers (1) Major depression: Major depression recurrence: recurrent Active/Remission status: currently active Major depression episode severity: moderate Qualified Codes: F33.1 - Major depressive disorder, recurrent, moderate SYLVIA LAWSON NP Sep 18, 2018 09:40
[2018-09-18 14:20] VITALS: BP 142/80
[2018-09-19 06:47] VITALS: BP 120/98
[2018-09-19] MEDS: MULTIVITAMINS PO SCH (08:31)
[2018-09-19] MEDS: LOSARTAN POTASSIUM 50 MG TAB PO SCH (08:31)
[2018-09-19] MEDS: buPROPion XL 150 MG TABCR PO SCH (08:31)
[2018-09-19] MEDS: ASPIRIN 81 MG ENTERIC COATED PO SCH (08:31)
[2018-09-19] MEDS: METOPROLOL SUCC XL 50 MG TABCR 50 MG TAB.ER.24H PO SCH (08:31)
[2018-09-19] MEDS ORDERED: metFORMIN HCL 500 MG TAB PO SCH (09:00)
[2018-09-19] MEDS ORDERED: SIMV10TA98 PO (10:10)
[2018-09-19] MEDS: ACETAMINOPHEN 325 MG TAB PO PRN (11:16)
[2018-09-19] MEDS ORDERED: MULT-859 PO (13:34)
[2018-09-19] MEDS ORDERED: NICO4LOZ35 BC (13:35)
--- NOTE | 2018-09-19 14:38 | BHS Discharge Summary ---
[facility] Discharge Summary Gopx-pb-Kltm Encounter Date: Sep 19, 2018 Zxnr-zz-Usuk Encounter Time: 10:00 Reason-Hosp/Final Diag (DSM-V): (1) Major depression Hospital Course & Plan: Pt was admitted to [facility] and maintained on suicide precautions. He participated actively in individual and group therapies. He was cooperative at all times. He denied SI throughout his hospital stay. 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 He indicated that he and his had argued the day of admission, and she had not allowed him to see his son because of that. However, he did have his son for a week over [place], and he and resolved their argument and she indicated that he would be able to see him again soon. We told patient that he had to have his firearms secured for the time being, and he fussed about this a little but did cooperate and had a friend remove them and verify to us that they were indeed secured. We helped arrange outpatient therapy for him that will be "in network" with his insurance. We continued his wellbutrin XL 300 mg since that dose had just been increased by Dr. Canseco last month. He will follow up with her for meds and will attend therapy. (2) Partner relational problem Physical Exam Latest Vital Signs Vital Signs 09/18/18 09/19/18 14:20 06:47 Temp 98.2 Pulse 83 Resp 16 B/P (MAP) 120/98 (105) Pulse Ox 97 O2 Delivery Room Air Mental Status Exam General Appearance: Casual, Well Groomed, Good Eye Contact, Cooperative, Polite, Good Interaction Speech: Clear, Spontaneous, Normal Rate, Normal Rhythm, Normal Volume, Normal Tone Mood: Euthymic Affect: Full and Appropriate, Calm Thought Process: Organized, Logical, Goal Directed Thought Content: No Suicidal Ideation, No Homicidal Ideation, No Delusions, No Auditory Halllucinations, No Visual Hallucinations, No Thought Broadcasting, No Ideas of Reference, No Obsessions, No Compulsions, No Other Sensorium: Clear Cognition: Alert & Oriented-Person, Alert & Oriented-Place, Alert & Oriented- Time, Uugxf-Ipqyqgtl-Jnzmtdfyt Memory: Immediate, Recent, Remote Intelligence: Average Insight Judgment: Fair Departure Condition: Improved Discharge to: Home Discharge Instructions Home Meds Reported Medications Nicotine Polacrilex (NICOTINE LOZENGE) 4 Mg Lozenge, 4 MG BC Q1-2H PRN for NICOTINE REPLACEMENT, LOZENGE 09/19/18 Multivits,Ca,Minerals/Iron/Fa (THERA-M TABLET) 1 Each Tablet, 1 EACH PO DAILY 09/19/18 Metoprolol Succinate (METOPROLOL SUCCINATE) 50 Mg Tab.er.24h, 2 TAB PO QDAY, TAB 09/18/18 Bupropion Hcl (WELLBUTRIN XL) 300 Mg Tab.er.24h, 300 MG PO QDAY, TAB 09/18/18 Losartan Potassium (LOSARTAN POTASSIUM) 100 Mg Tablet, 100 MG PO QDAY 04/11/18 Metformin Hcl (METFORMIN HCL) 500 Mg Tablet, 2 TAB PO QAM, TAB Take medication as prescribed by outpatient primary care provider. 04/11/18 Aspirin (ASPIR 81) 81 Mg Tablet.dr, 81 MG PO QDAY, TAB 08/10/14 Discontinued Reported Medications Simvastatin (SIMVASTATIN) 10 Mg Tablet, 10 MG PO HS, TAB 09/19/18 Simvastatin (SIMVASTATIN) 20 Mg Tablet, 20 MG PO HS, TAB 11/03/17 Nebivolol Hcl (BYSTOLIC) 10 Mg Tab, 10 MG FT, TAB 11/03/17 Multpiple Antipsychotics Used: No Diet: Regular Activity: As Tolerated Special Instructions: Discharge today. Follow-up with outpatient therapy and medication management. Abstain from alcohol and all illicit substances. Crisis line provided. Problem Qualifiers (1) Major depression: Major depression recurrence: recurrent Active/Remission status: currently active Major depression episode severity: moderate Qualified Codes: F33.1 - Major depressive disorder, recurrent, moderate IFEANYI DOHERTY MD Sep 19, 2018 14:38
== END 2018-09-19 17:15 | disposition home or self-care (01) | DRG 885 ==
LOC: BHS 23:11
PROVIDERS: ADMIT Registered Nurse Psychiatric/Mental Health, Adult; ATTEND Registered Nurse Psychiatric/Mental Health, Adult
DX: F33.1 Major depressive disorder, recurrent, moderate (principal); R45.851 Suicidal ideations; I10 Essential (primary) hypertension; E11.9 Type 2 diabetes mellitus without complications; E78.00 Pure hypercholesterolemia, unspecified; F17.220 Nicotine dependence, chewing tobacco, uncomplicated; F15.21 Other stimulant dependence, in remission; Z62.810 Personal history of physical and sexual abuse in childhood; Z63.5 Disruption of family by separation and divorce

== ENCOUNTER 2018-12-28 11:18 | Outpatient (RCR) | payer OTHER ==
[~2018-12-28 11:18] MED LIST changes: +BUPR-474 PO; +METO50TA19 PO; +MULT-859 PO; +NICO4LOZ35 BC; +SIMV10TA98 PO
[2018-12-28 17:53] LABS: PLATELET COUNT, AUTOMATED 166 K/uL (150-450)
[2018-12-29] MEDS ORDERED: IOPAMIDOL 76% 150 ML INFUS BTL 150 ML ONE (10:58)
[2018-12-29] MEDS ORDERED: NS(*) 0.9% 50 ML BAG 50 ML ONE (10:58)
--- NOTE | 2018-12-29 13:52 | RADIOLOGY IMAGING REPORT ---
FACILITY: [facility] PATIENT NAME: Edward Umana : 1960 MR: [id number] V: [id number] EXAM DATE: ORDERING PHYSICIAN: RAYMOND WALKER TECHNOLOGIST: Location: [facility] Patient: Edward Umana : 1960 Visit/Account:[id number] Date of Sevice: 12/29/2018 CT ABDOMEN PELVIS W & W/O CONTRAST HISTORY: Right-sided abdomen pain, history of kidney stones TECHNIQUE: Axial images acquired through the abdomen/pelvis both with and without IV contrast.. Joellen nal and sagittal reformatting also performed.Dose Lowering Technique One of the following dose optimization techniques was utilized in the performance of this exam: Autom ated exposure control; adjustment of the mA and/or kV according to the patient's size; or use of an i terative reconstruction technique. Specific details can be referenced in the facility's radiology C T exam operational policy. CONTRAST: 75 mL Isovue-370 COMPARISON: April 11, 2018 FINDINGS: Visualized lung bases: Negative. Hepatobiliary: There postsurgical changes from a cholecystectomy Spleen: There is a vague 2.3 cm enhancing mass in the mid spleen Adrenals: Negative. Pancreas: Negative. Kidneys ureters and bladder: There is a 4.6 x 2.8 cm parapelvic cyst in the inferior left kidney. Th ere are additional smaller cysts also noted in the left kidney. A 1.1 cm mid pole left renal cyst co ntains a peripheral calcification There is a 2 mm nonobstructing calculus in lower pole calyx of the right kidney. There is a 4 mm nonobstructing stone lower pole calyx of the left kidney there is no evidence of hydr onephrosis or hydroureter. 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 Genitalia: There is a mild impression along the floor the bladder from the mildly prominent prostate gland GI: There is no evidence of bowel obstruction or bowel wall thickening . The appendix is visualize d and does not appear inflamed Vessels/spaces/nodes: There mild atherosclerotic calcifications in the abdomen and pelvis Bones/soft tissues: No aggressive appearing bone lesions are seen Additional findings: None pertinent. IMPRESSION: Nonobstructing nephrolithiasis bilaterally Mildly prominent prostate gland Vague 2.3 cm enhancing mass in the mid spleen. Statistically this represents a hemangioma although o ther solid lesions not totally excluded Additional chronic findings as described Report Dictated By: Tiesha Son MD at 12/29/2018 1:35 PM Report E-Signed By: Tiesha Son MD at 12/29/2018 1:47 PM WSN:[email or web address]
[2018-12-30] MEDS ORDERED: TAMS0.4C25 PO (13:38)
[2018-12-30] MEDS ORDERED: KET10 PO (13:38)
[2018-12-30] MEDS ORDERED: HYDR-653 PO (13:38)
[2018-12-30] MEDS ORDERED: SIMV10TA96 PO (13:38)
== END 2018-12-29 18:00 | disposition home or self-care (01) ==
LOC: LAB 11:18 → CT 12-29 18:00
PROVIDERS: ATTEND Urology
DX: R10.84 Generalized abdominal pain (principal); R31.29 Other microscopic hematuria; Z87.442 Personal history of urinary calculi; N20.0 Calculus of kidney; N40.1 Benign prostatic hyperplasia with lower urinary tract symptoms
CPT/HCPCS: 36415; 74178; 81001; 82150; 83690; 84153; 85025; 87088; J7050; Q9967; 82040; 82247; 82310; 82374; 82435; 82565; 82947; 84075; 84132; 84155; 84295; 84450; 84460; 84520

== ENCOUNTER 2019-01-02 01:35 | Observation (INO) | payer OTHER ==
--- NOTE | 2018-12-30 14:36 | HISTORY AND PHYSICAL ---
DATE OF ADMISSION: January 02, 2019 CHIEF COMPLAINT Bilateral kidney stones. HISTORY OF PRESENT ILLNESS Patient is a 58-year-old [place] Citizen male with a history of kidney stones in the past, who recently presented to the Urology Clinic with diffuse abdominal pain, intermittent in nature. A followup CT scan was performed, which showed a 5 x 4 mm left lower pole stone and a 2.2 mm right pole stone. He had no hydronephrosis or ureteral stones identified. He had a prior x-ray performed in March of last year which showed no stones on the right, and the stone on the left was smaller. He was given the option of continued followup with metabolic evaluation versus proceeding with treatment. He has elected to undergo extracorporeal shock wave lithotripsy and/or ureteroscopy. He understands that this will be likely to improve his current vague abdominal pains and may prevent further sequelae from enlarging stones in the future. PAST MEDICAL HISTORY 1. Hypertension. 2. Gastroesophageal reflux disease. 3. Utw-hancipp-uitdixfel diabetes. 4. Depression. 5. Spontaneous pneumothorax at age 14, treated with chest tube. 6. Negative cardiac cath in 2010. PAST SURGICAL HISTORY 1. Tonsillectomy and jaw surgery for obstructive sleep apnea 2011. 2. Colonoscopy. 3. Right ureteroscopy with extracorporeal shock wave lithotripsy 2009. 4. Right knee scope. 5. Laparoscopic cholecystectomy 2015. 6. Bilateral vasectomy. ALLERGIES No known drug allergies. CURRENT MEDICATIONS 1. Aspirin. 2. Wellbutrin. 3. Losartan. 4. Metformin. 5. Metoprolol. 6. Multivitamins . 7. Nicotine replacement. FAMILY HISTORY Noncontributory. REVIEW OF SYSTEMS Patient denies chest pain, shortness of breath, fever, chills, gross hematuria, change in bowel habits, productive cough, chronic aches. PHYSICAL EXAMINATION GENERAL: Patient is a well-developed, well-nourished male in no acute distress. HEENT: Normocephalic, atraumatic. CHEST: Clear to auscultation bilaterally. CARDIOVASCULAR: Regular rate and rhythm. ABDOMEN: Soft, nontender. No masses are palpated. GENITOURINARY: Deferred to the OR. EXTREMITIES: Without clubbing, cyanosis, or edema. NEUROLOGIC: Nonfocal. IMPRESSION A 58-year-old white male with bilateral lower pole stones, right measuring approximately 2 x 2 and left measuring approximately 5 x 4. PLAN We will perform left extracorporeal shock wave lithotripsy and possible right. MTDD
--- NOTE | 2018-12-31 09:34 | NUR ---
pt called with questions about instructions and what medications to take. Spoke with pt, and instructions discussed again with what medications to take, also emailed pt instructions to ensure pt has them written done to review. pt stated understanding.
[~2019-01-02] VITALS: Ht 182.9 cm; Wt 77.1 kg
[~2019-01-02 01:35] MED LIST changes: +KET10 PO; +SIMV10TA96 PO; +TAMS0.4C25 PO
[2019-01-02 11:26] VITALS: BP 118/79
[2019-01-02] MEDS ORDERED: PROPOFOL EMUL(*) 10MG/ML 20 ML 20 ML ONE (11:35)
[2019-01-02] MEDS ORDERED: DEXAMETHASONE SOD 4 MG/ML VIAL ONE (11:35)
[2019-01-02] MEDS ORDERED: METOCLOPRAMIDE 10 MG/2 ML SDV ONE (11:35)
[2019-01-02] MEDS ORDERED: LIDOCAINE MPF 1% 5 ML VIAL ONE (11:35)
[2019-01-02] MEDS ORDERED: ONDANSETRON 4 MG/2 ML VIAL ONE (11:35)
[2019-01-02] MEDS ORDERED: fentaNYL CITR 250 MCG/5 ML AMP ONE (11:37)
[2019-01-02] MEDS ORDERED: LIDOCAINE/SOD BICARB 8.4% SYR ID ONE (12:00)
[2019-01-02] MEDS ORDERED: FAMOTIDINE 20 MG TAB PO ONE (12:00)
[2019-01-02] MEDS ORDERED: ceFAZolin(*) 1 GM VIAL 1 GM in NS(*) 0.9% 100 ML MINI-BAG 100 ML IVPB ONE (12:00)
[2019-01-02] MEDS ORDERED: MIDAZOLAM 2 MG/2 ML VIAL IVP PRN (12:00)
[2019-01-02] MEDS ORDERED: NORMOSOL R SOLN(*) 1000 ML BAG 1,000 ML IV PRN (12:00)
[2019-01-02] MEDS ORDERED: ePHEDrine 25 MG/5 ML DISP.SYR IVP ONE (14:38)
--- NOTE | 2019-01-02 14:47 | RADIOLOGY IMAGING REPORT ---
FACILITY: [facility] PATIENT NAME: Edward Umana : 1960 MR: [id number] V: [id number] EXAM DATE: ORDERING PHYSICIAN: RAYMOND WALKER TECHNOLOGIST: Location: [facility] Patient: Edward Umana : 1960 Visit/Account:[id number] Date of Sevice: 12/30/2018 Exam type: KUB SINGLE VIEW ABDOMEN History: Kidney stone Comparison: CT December 29, 2018. Findings: 4 mm calcification is again seen projecting over the lower pole the left kidney. 2 mm calcification projecting over the lower pole of the right kidney is also noted. There are surgical clips right upp er quadrant of abdomen. The bowel gas pattern is nonspecific. Period this lesion with the sclerotic calcified engel seen over the medial left iliac bone does not have an aggressive appearance. IMPRESSION: 4 mm calcification projects over the lower pole the left kidney 2 mm calcification projects over the lower pole the right kidney Report Dictated By: Tiesha Son MD at 01/02/2019 2:39 PM Report E-Signed By: Tiesha Son MD at 01/02/2019 2:43 PM WSN:[email or web address]
--- NOTE | 2019-01-02 14:50 | EKG ---
FACILITY: [facility] PATIENT NAME: JOSSIE SOTO : [id number] MR: [id number] V: [id number] EXAM DATE: ORDERING PHYSICIAN: GARCIA MENDOZA TECHNOLOGIST: RAYMOND Test Reason : PRE OP KIDNEY STONES Blood Pressure : / mmHG Vent. Rate : 062 BPM Atrial Rate : 062 BPM P-R Int : 178 ms QRS Dur : 076 ms QT Int : 402 ms P-R-T Axes : 058 007 051 degrees QTc Int : 408 ms Normal sinus rhythm Normal ECG When compared with ECG of 03-NOV-2017 14:04, No significant change was found Confirmed by Joesph Dietz ([id number]) on 01/02/2019 7:01:06 PM Referred By: AARON Confirmed By:Joesph Buchanan
[2019-01-02] MEDS ORDERED: NS(*) 0.9% 1000 ML BAG 1,000 ML IV PRN (15:55)
[2019-01-02] MEDS ORDERED: ZOLPIDEM TARTRATE 10 MG TAB PO PRN (15:55)
[2019-01-02] MEDS ORDERED: MAG HYD/AL HYD/SIMETH 30ML UDC PO PRN (15:55)
[2019-01-02] MEDS ORDERED: ONDANSETRON 4 MG/2 ML VIAL IVP PRN (15:55)
[2019-01-02] MEDS ORDERED: KETOROLAC 30 MG/ML VIAL ONE (16:05)
[2019-01-02 16:32] VITALS: BP 124/79
[2019-01-02 17:45] VITALS: BP 128/81
[2019-01-02] MEDS ORDERED: KETOROLAC 30 MG/ML VIAL IVP SCH (18:00)
[2019-01-02 20:40] VITALS: BP 146/92
[2019-01-02] MEDS: DOCUSATE SODIUM 100 MG CAP PO SCH (21:25)
[2019-01-02] MEDS: KETOROLAC 30 MG/ML VIAL IVP SCH (21:26)
[2019-01-02 23:04] VITALS: BP 143/80
--- NOTE | 2019-01-03 02:24 | OPERATIVE REPORT 1 ---
EVENT DATE: January 02, 2019 SURGEON: Joaquin Perez MD ANESTHESIOLOGIST: Tate Hess MD ANESTHESIA: General anesthetic. PREOPERATIVE DIAGNOSIS Left lower pole renal calculi measuring 5 x 6 mm. POSTOPERATIVE DIAGNOSIS Left lower pole renal calculi measuring 5 x 6 mm. PROCEDURE PERFORMED Left lower pole extracorporeal shockwave lithotripsy. ESTIMATED BLOOD LOSS Minimal. INTRAVENOUS FLUIDS Crystalloids. DRAINS None. COMPLICATIONS None. CONDITION Patient taken to recovery room awake and in stable condition. STATEMENT OF MEDICAL NECESSITY Patient is a 58-year-old male with a history of kidney stones approximately 10 years ago, who had now presented with increasing vague abdominal pain. CT scan was performed, which showed a single stone in both systems. He had approximately a 5 x 6 mm stone in the left lower pole and a 2 x 3 mm stone in the right lower pole. He had no ureteral calcifications or evidence of hydronephrosis. A film performed nine months earlier showed no calcifications in the right, and the stone in the left lower pole to be smaller. He has elected to undergo extracorporeal shockwave lithotripsy of this larger left stone. DESCRIPTION OF PROCEDURE Patient was brought to the operating room, and after general anesthetic was obtained, he was placed supine on the lithotripsy table. His left lower pole stone was visualized with two-plane fluoroscopy and placed in the lithotripsy cross-hairs. Treatment was begun at power setting of 2 and gradually increased to a power setting of 3.5 over the course of the first 300 shocks. A three- minute pause was then performed and treatment resumed. The power was gradually increased to a power setting of 8 over the course of the first 2000 shocks. At 2000 shocks, the treatment head was swung out of the way. Fluoroscopy was then used to closely inspect the lower pole. There appeared to be only one to two minute fragments remaining that could be possibly identified. Therefore, the treatment head was placed back into position, and using the two-plane fluoroscopy, 500 more shocks were given to this area. He received a total of 2500 shocks to the left lower pole, at the conclusion of which no further fragments could be identified. The patient was awakened in the operating room and taken to the recovery area in stable condition. The plan will be to allow the patient to stay for 23-hour observation, given the fact he does not have someone available to monitor him over the evening. We will plan to send him home in the morning on Flomax, Colace, and Lortab. He will start the head-down protocol and collect any stone fragments and bring them in for evaluation. We plan to see him in the urology clinic in approximately six weeks with a followup KUB. JESSICA
[2019-01-03 03:53] VITALS: BP 135/77
[2019-01-03] MEDS: KETOROLAC 30 MG/ML VIAL IVP SCH ×2 (03:57→09:29)
[2019-01-03] MEDS ORDERED: TAMSULOSIN HCL 0.4 MG CAP PO SCH (08:00)
[2019-01-03 08:10] VITALS: BP 140/87
[2019-01-03] MEDS: DOCUSATE SODIUM 100 MG CAP PO SCH (08:15)
[2019-01-03] MEDS ORDERED: LOSARTAN POTASSIUM 50 MG TAB PO SCH (09:00)
[2019-01-03] MEDS ORDERED: SIMVASTATIN 20 MG TAB PO SCH (09:00)
[2019-01-03] MEDS ORDERED: buPROPion XL 150 MG TABCR PO SCH (09:00)
[2019-01-03] MEDS ORDERED: METOPROLOL SUCC XL 50 MG TABCR 50 MG TAB.ER.24H PO SCH (09:00)
[2019-01-03] MEDS ORDERED: TAMS0.4C25 PO (09:17)
[2019-01-03] MEDS ORDERED: DOCU-416 PO (09:18)
[2019-01-03] MEDS ORDERED: HYDR-385 PO (09:18)
== END 2019-01-03 09:12 | disposition home or self-care (01) ==
LOC: OR 01:35 → MED 16:25
PROVIDERS: ADMIT Urology; ATTEND Urology
DX: N20.0 Calculus of kidney (principal); E11.9 Type 2 diabetes mellitus without complications; I10 Essential (primary) hypertension
CPT/HCPCS: 36416; 50590; 74018; 82948; 93005; G0378; J0690; J1100; J1885; J2001; J2405; J2704; J2765; J3010

== ENCOUNTER → 2019-02-15 | Outpatient (CLI) | payer OTHER ==
[~2019-02-15] MED LIST changes: +DOCU-416 PO
--- NOTE | 2019-02-15 09:28 | RADIOLOGY IMAGING REPORT ---
FACILITY: [facility] PATIENT NAME: Edward Umana : 1960 MR: [id number] V: [id number] EXAM DATE: ORDERING PHYSICIAN: RAYMOND WALKER TECHNOLOGIST: Location: [facility] [place] Patient: Edward Umana : 1960 Visit/Account:[id number] Date of Sevice: 02/15/2019 Exam type: KUB SINGLE VIEW ABDOMEN History: Occasional "bump" in the right lower quadrant. No pain rotation History of kidney stones Comparison: January 02, 2019. Findings: There is a nonspecific bowel gas pattern. There are surgical clips the right upper quadrant abdomen. Previously noted 2 mm calcification projecting over the lower pole the right kidney is no longer se en. The previously noted 4 mm calcification projecting over the lower pole the left kidney is not se en. IMPRESSION: 1. Previously noted calcifications projecting over the kidneys are not identified on the current exa mination Report Dictated By: Tiesha Son MD at 02/15/2019 9:21 AM Report E-Signed By: Tiesha Son MD at 02/15/2019 9:24 AM WSN:[email or web address]
== END ==
LOC: RAD 08:51
PROVIDERS: ATTEND Urology
DX: N20.0 Calculus of kidney (principal)
CPT/HCPCS: 74018